=== PATIENT | female | born 1990 | race Caucasian/White ===

== ENCOUNTER 2017-10-10 19:06 | Observation (INO) ==
[2017-10-10 19:56] LABS: Bilirubin,Urine Negative (Negative); Blood,Urine Negative (Negative); Clarity,Urine Cloudy (Clear); Color,Urine Yellow (Yellow); Glucose,Urine (UA) Normal (Normal); Ketones,Urine Negative (Negative); Leukocyte Esterase,Urine Moderate (Negative); Nitrite,Urine Negative (Negative); PH,Urine 7.5 pH Units (5.0-8.0); Protein,Urine 30 mg/dL (Neg-Trace); Specific Gravity,Urine 1.025 (1.010-1.025); Urobilinogen,Urine Normal (Normal)
[2017-10-10 19:58] LABS: Bacteria,Urine Moderate per hpf (None-Few); Hyaline Casts,Urine None Seen per lpf (None-Few); Squamous Epithelial Cell,Urine Many per lpf (None-Few); WBC,Urine 30-50 per hpf (0-3)
--- NOTE | 2017-10-10 21:07 | Emergency Department Note ---
Disposition Clinical Impression: Suprapubic pain, acute, Inappropriate change in quantitative hCG in early Ovarian cyst Qualifiers: Laterality: left Qualified Code(s): N83.202 - Unspecified ovarian cyst, left side Disposition: Admitted As Inpatient Condition: Serious Time of Disposition: 23:43 HPI - General Chief complaint: ED Vaginal Bleeding Stated complaint: +home preg, vag bleed Time Seen by Provider: 10/10/17 21:06 Source: patient Nursing Notes Reviewed: Yes Vital Signs Reviewed: Yes - History of Present Illness HPI Narrative: 27-year-old female A1 approximately 4-6 weeks gestational age had a positive test a few weeks ago beta-HCG of 2:30 yesterday planes with abdominal cramping denies any abdominal bleeding patient's was to see in outpatient setting next week for repeat check, given worsening cramping and she previous had a miscarriage in April, she is concerned that she may be having a miscarriage and that she denies vaginal bleeding, denies vaginal discharge. Patient reports 4/10 cramping suprapubic abdominal pain. Pt Subjective Complaint: abdominal pain Onset (ago): hour(s) Location: pelvis Pain Severity: moderate Pain Scale: 4 Quality: cramping, aching Associated symptoms: Reports: abdominal pain. Denies: vaginal bleeding, vaginal discharge, dysuria, headache, rash, seizure Vaginal discharge: none Confirmation of LMP: No : yes OB History - Current : no care OB History - Previous Pregnancies: no care If care: followed by OB (Max) - Related Data Home Medications Medication Instructions Recorded Confirmed Vit Calc,Iron,Folic 1 tab PO DAILY 01/07/16 02/01/16 [ Vitamins] Previous Rx's Medication Instructions Recorded Docusate [Colace] 100 mg PO BID #60 capsule 02/03/16 Ibuprofen [Motrin] 600 mg PO TID PRN #60 tablet 02/03/16 Allergies Allergy/AdvReac Type Severity Reaction Status Date / Time No Known Allergies Allergy Verified 10/10/17 19:39 All systems ED: reviewed and negative except as stated. Review of Systems: As Per HPI Constitutional: Denies: fever Eyes: Denies: eye pain ENT ED: Denies: ear pain Cardiovascular: Denies: chest pain Respiratory: Denies: cough, dyspnea Gastrointestinal: Reports: as per HPI, abdominal pain. Denies: hematemesis Genitourinary: Denies: urgency, dysuria, frequency, discharge, abnormal menses Musculoskeletal: Denies: back pain Integumentary: Denies: rash, abrasion Neurological: Denies: headache Psychiatric: Denies: anxiety PMH - Social History Smoking Status: Never smoker Alcohol use: Reports: none Drug use: Reports: none Physical Exam - General General appearance: alert, in no apparent distress - Head Head exam: atraumatic - Eye Eye exam: Present: normal appearance, PERRL - ENT ENT exam: normal exam, normal oropharynx - Neck Neck exam: Present: normal inspection, full ROM - Chest Chest inspection: Present: normal inspection - Respiratory Respiratory exam: Present: normal lung sounds bilaterally - Cardiovascular Cardiovascular exam: Present: regular rate, normal rhythm - Abdominal Exam Abdominal exam: Present: soft, tenderness Abdominal tenderness: Present: suprapubic, mild - Female External Exam: Present: pt deferred Speculum Exam: Present: Pt Deferred - Extremities Exam Extremities exam: Present: normal inspection, full ROM - Neurological Exam Neurological exam: Present: alert, oriented X3, CN II-XII intact - Skin Skin exam: Present: warm, dry Course Course Narrative: Patient is a 27-year-old female who presents complaining of suprapubic pain and early given that she is having no vaginal bleeding pelvic exam was offered and deferred per the patient however the patient does have elevated beta hCG at 2:30 we repeat a beta hCG was 360 I did order transvaginal ultrasound to confirm IUP patient has a history of A- blood type but with no vaginal bleeding no indication for RhoGAM at this time concern for early cramping possible threatened versus ectopic - Consultations Consultation #1: I did reevaluate the patient her abdominal pain is somewhat improved with mostly suprapubic for a 10 the patient has no guarding or rigidity her blood pressures remained stable but I did order some IV fluids and basic lab work the patient has evidence on her ultrasound of some free abdominal fluid and questionable signs for possible ectopic given elevated hCG with no confirmed gestational sac only endometrial myometrial cysts ovarian cyst on the right given a questional ectopic findings he did call the nurse vice president tax Najma Evaluated the patient at bedside she was then evaluated by Dr. Dailey at bedside who will bring the patient for admission should no other recommendations at the time of her decision she evaluated the patient 2320 and the patient was hemodynamically stable on admission were was placed for possible ectopic admission to [facility] [employer] service Time: 23:20 Vital Signs Temperature 98.8 F 10/10/17 19:36 Pulse Rate 94 10/10/17 19:36 Respiratory Rate 16 10/10/17 19:36 Blood Pressure 165/100 10/10/17 19:36 O2 Sat by Pulse Oximetry 100 10/10/17 19:36 Temperature 98.8 F 10/10/17 19:36 Pulse Rate 94 10/10/17 19:36 Respiratory Rate 16 10/10/17 19:36 Blood Pressure 165/100 10/10/17 19:36 O2 Sat by Pulse Oximetry 100 10/10/17 19:36 Oxygen Delivery Oxygen Delivery Room Air OB/Uterine Contractions - Differential Diagnosis Likely: normal delivery at term, hemorrhage, -induced hypertension, eclampsia, ectopic - Medical Records Medical records reviewed: Yes I reviewed the patient's medical records. - Lab Data Lab results reviewed: Yes I reviewed the patient's lab results. Result diagrams: 10/10/17 20:05 10/10/17 20:05 Lab Results 10/10/17 10/10/17 10/10/17 Range/Units 19:44 20:05 20:05 WBC (4.3-11.1) K/mcL RBC (3.82-4.97) M/mcL Hgb (11.5-15.4) g/dL Hct (35.3-44.9) % MCV (83.0-100.0) fL MCH (28.0-33.3) pg MCHC (31.6-35.5) g/dL RDW (11.5-14.5) % Plt Count (140-400) K/mcL MPV (9.4-12.4) fL Immature Gran % (0-4) % Seg Neutrophils % % Lymphocytes % % Monocytes % % Eosinophils % % Basophils % % Neutrophils # (1.6-8.9) K/mcL Lymphocytes # (0.6-4.6) K/mcL Monocytes # (0.0-1.3) K/mcL Eosinophils # (0.0-0.6) K/mcL Basophils # (0.0-0.2) K/mcL Sodium 138 (136-145) mEq/L Potassium 3.5 (3.5-5.1) mEq/L Chloride 110 H (98-107) mEq/L Carbon Dioxide 15 L (23-29) mEq/L BUN 9 (6-20) mg/dL Creatinine 0.63 (0.60-1.20) mg/dL Est GFR ( Amer) > 60 (> 60) Est GFR (Non-Af Amer) > 60 (> 60) BUN/Creatinine Ratio 14 (6-26) Glucose 107 H (70-105) mg/dL Calculated Osmolality 285 (280-300) Calcium 10.2 (8.6-10.3) mg/dL Beta HCG, Quant 395 H (Less than 5) mIU/mL Urine Color Yellow (Yellow) Urine Clarity Cloudy A (Clear) Urine pH 7.5 (5.0-8.0) pH Units Ur Specific [place] 1.025 (1.010-1.025) Urine Protein 30 H (Neg-Trace) mg/dL Urine Glucose (UA) Normal (Normal) mg/dL Urine Ketones Negative (Negative) mg/dL Urine Blood Negative (Negative) Urine Nitrite Negative (Negative) Urine Bilirubin Negative (Negative) Urine Urobilinogen Normal (Normal) mg/dL Ur Leukocyte Esterase Moderate H (Negative) Urine Microscopic RBC 3-5 H (0-3) per hpf Urine Microscopic WBC 30-50 H (0-3) per hpf Ur Squamous Epith Cells Many H (None-Few) per lpf Urine Bacteria Moderate H (None-Few) per hpf Hyaline Casts None Seen (None-Few) per lpf Ur Culture Indicated? NO. (NO) Blood Type A NEGATIVE Antibody Screen NEGATIVE 10/10/17 Range/Units 20:05 WBC 12.8 H (4.3-11.1) K/mcL RBC 5.26 H (3.82-4.97) M/mcL Hgb 14.7 (11.5-15.4) g/dL Hct 44.8 (35.3-44.9) % MCV 85.2 (83.0-100.0) fL MCH 27.9 L (28.0-33.3) pg MCHC 32.8 (31.6-35.5) g/dL RDW 13.1 (11.5-14.5) % Plt Count 288 (140-400) K/mcL MPV 10.4 (9.4-12.4) fL Immature Gran % 0.5 (0-4) % Seg Neutrophils % 69.9 % Lymphocytes % 21.3 % Monocytes % 7.2 % Eosinophils % 0.7 % Basophils % 0.4 % Neutrophils # 9.0 H (1.6-8.9) K/mcL Lymphocytes # 2.7 (0.6-4.6) K/mcL Monocytes # 0.9 (0.0-1.3) K/mcL Eosinophils # 0.1 (0.0-0.6) K/mcL Basophils # 0.1 (0.0-0.2) K/mcL Sodium (136-145) mEq/L Potassium (3.5-5.1) mEq/L Chloride (98-107) mEq/L Carbon Dioxide (23-29) mEq/L BUN (6-20) mg/dL Creatinine (0.60-1.20) mg/dL Est GFR ( Amer) (> 60) Est GFR (Non-Af Amer) (> 60) BUN/Creatinine Ratio (6-26) Glucose (70-105) mg/dL Calculated Osmolality (280-300) Calcium (8.6-10.3) mg/dL Beta HCG, Quant (Less than 5) mIU/mL Urine Color (Yellow) Urine Clarity (Clear) Urine pH (5.0-8.0) pH Units Ur Specific [place] (1.010-1.025) Urine Protein (Neg-Trace) mg/dL Urine Glucose (UA) (Normal) mg/dL Urine Ketones (Negative) mg/dL Urine Blood (Negative) Urine Nitrite (Negative) Urine Bilirubin (Negative) Urine Urobilinogen (Normal) mg/dL Ur Leukocyte Esterase (Negative) Urine Microscopic RBC (0-3) per hpf Urine Microscopic WBC (0-3) per hpf Ur Squamous Epith Cells (None-Few) per lpf Urine Bacteria (None-Few) per hpf Hyaline Casts (None-Few) per lpf Ur Culture Indicated? (NO) Blood Type Antibody Screen - Radiology Data Radiology results reviewed: Yes I reviewed the patient's radiology results. Obstetrics Ultrasound 10/10/17 20:52 IMPRESSION: 1. No intrauterine gestational sac identified. A few nonspecific cystic changes are identified within the thickened endometrium. There is also moderate amount of nonspecific free fluid within the pelvis. Findings are highly suspicious for ectopic given rising beta HCG with no normal intrauterine gestational sac identified. 2. Small mildly complex left ovarian cyst measuring 2.1 x 1.7 x 1.6 cm. D/ / Byron Esparza MD / Byron Esparza MD Interpreting Provider: Byron Esparza MD Attestation Statement - Attestation Attestation: I, Regino Helm MD, personally evaluated this patient and discussed their management with the resident physician. I reviewed the resident's note and agree with the documented findings, medical decision making, and plan of care. 27-year-old female with early presents complaining of some crampy bilateral lower abdominal pain all day today which has gotten progressively worse. She denies any vaginal bleeding or discharge. No fever. No dizziness or syncope. No generalized abdominal pain. On examination patient is a well-developed obese female in no acute distress. She is alert and oriented 3. There is no cyanosis or diaphoresis. Breath sounds are clear and equal bilaterally. Heart regular rate and rhythm. Abdomen soft with normal bowel sounds. There is mild left lower quadrant and right lower quadrant tenderness on direct palpation. No CVA tenderness. Labs reviewed. Pelvic ultrasound showed: 1. No intrauterine gestational sac identified. A few nonspecific cystic changes are identified within the thickened endometrium. There is also moderate amount of nonspecific free fluid within the pelvis. Findings are highly suspicious for ectopic given rising beta HCG with no normal intrauterine gestational sac identified. 2. Small mildly complex left ovarian cyst measuring 2.1 x 1.7 x 1.6 cm. The miniature set constructor OB vice president tax was consulted and will evaluate patient in the emergency department. Patient was seen in the emergency department by the OB vice president tax and then was also seen by grinder operator surface tool, Dr. Dailey, and was accepted for admission to the OB service.
[2017-10-10] MEDS ORDERED: 0.9 % Sodium Chloride 1,000 ML IVC ONE (22:09)
[2017-10-10] MEDS ORDERED: *HR* FentaNYL (PF) 100 MCG/2 ML VIAL IVP ONE (22:22)
[2017-10-10 22:26] LABS: Basophils # 0.1 K/mcL (0.0-0.2); Basophils % 0.4 %; Eosinophils # 0.1 K/mcL (0.0-0.6); Eosinophils % 0.7 %; Hematocrit 44.8 % (35.3-44.9); Hemoglobin 14.7 g/dL (11.5-15.4); Immature Granulocytes % 0.5 % (0-4); Lymphocytes # 2.7 K/mcL (0.6-4.6); Lymphocytes % 21.3 %; Mean Corpuscular HGB Conc 32.8 g/dL (31.6-35.5); Mean Corpuscular Hemoglobin 27.9 pg (28.0-33.3); Mean Corpuscular Volume 85.2 fL (83.0-100.0); Mean Platelet Volume 10.4 fL (9.4-12.4); Monocytes # 0.9 K/mcL (0.0-1.3); Monocytes % 7.2 %; Platelet Count 288 K/mcL (140-400); Red Blood Count 5.26 M/mcL (3.82-4.97); Red Cell Distribution Width 13.1 % (11.5-14.5); Segmented Neutrophils % 69.9 %
[2017-10-10 22:53] LABS: BUN/Creatinine Ratio 14 (6-26); Blood Urea Nitrogen 9 mg/dL (6-20); Calcium 10.2 mg/dL (8.6-10.3); Carbon Dioxide 15 mEq/L (23-29); Chloride 110 mEq/L (98-107); Glucose 107 mg/dL (70-105); Osmolality,Calculated 285 (280-300); Potassium 3.5 mEq/L (3.5-5.1); Sodium 138 mEq/L (136-145); eGFR For Non-African Americans > 60 (> 60)
[2017-10-11] MEDS ORDERED: cefTRIAXone 2,000 MG in Water for inj. (sterile) 20 ML 20 ML IVP ONE (00:06)
[2017-10-11] MEDS ORDERED: *HR* FentaNYL (PF) 100 MCG/2 ML VIAL IVP PRN (00:06)
[2017-10-11] MEDS ORDERED: Ibuprofen 600 MG TABLET PO PRN (00:06)
--- NOTE | 2017-10-11 00:06 | OB/GYN History & Physical ---
Date of Encounter: 10/10/17 Time of Encounter: 23:59 Assessment and Plan (1) at early stage Current visit: Yes Status: Acute Early small possible gestational sac on ultrasound with thickened endometrium. Findings consistent with gestational age and quantitative hCG. Quantitative hCG has increased from 231 to 395 in 24 hours which would possibly be a normal increase. Patient has a history of loss of right fallopian tube with previous surgery, not ectopic. Since then she has had normal intrauterine pregnancies with her current in present left tube, 1 resulting in a normal delivery and the other a miscarriage. The patient would like to retain her tube and avoid surgery if at all possible. She is currently hemodynamically stable and does not have acute adnexal pain. It is possible her pain is from other sources. She is aware that there is a small amount of free fluid and weight is unknown if it is blood versus a ruptured cyst. Patient requests to be observed at this time with the realization that she may need emergent surgery in the future. I believe this is an informed decision (2) Ovarian cyst Current visit: Yes Status: Acute Cannot rule out early ectopic . Continue observation and repeat ultrasound Qualifiers: Laterality: left Qualified Code(s): N83.202 - Unspecified ovarian cyst, left side (3) Suprapubic pain, acute Current visit: Yes Status: Acute Urine culture, treat with Rocephin IV. This is where her main source of pain seems to start (4) Blood type A- Current visit: Yes Status: Acute type and screen was lab work in the morning. Consideration for RhoGAM if needed History of Present Illness Chief complaint: Early w/ Abdominal pain HPI: Ms. Cruz is a 27 year old female who states she ovulated around September 23 and think she has an early and just had a positive yesterday. She woke up at 4 AM on 10/10 with midline lower abdominal pain which gradually worsened and she presented to the emergency room. She had initially contacted the office with Dr. Chung and had an initial quantitative hCG ordered through the office which was 231. She reports no vaginal bleeding. She states she had pain that would worsen from right to left depending on which side she was laying on but did not persist on any 1 particular side. She had a history of a large ovarian cyst which was removed robotically with Dr. Head several years ago. The right fallopian tube was removed at that time with a cyst. This was confirmed by reviewing the operative report today. Since then the patient had a normal followed by an intrauterine spontaneous in April and May 2017. She reports regular 32 day cycles since then until she conceived. She reports no dyspareunia and no history of STDs. She would like to have more children and feels strongly about this. She is extremely tearful at the idea of losing her other fallopian tube. She knows that she is A- blood type. Past Med Surg Social Fam HX - Past Medical History Source: patient, old records reviewed Medical history: other (PCOS) Psychiatric history: anxiety, panic disorder, PTSD - Past Surgical History Surgical History: other (Right cystectomy and salpingectomy with robot) - Social History Smoking Status: Never smoker Smokeless Tobacco Status: No Alcohol use: none Drug use: none - Family History Mother Adopted: No Living Status: Still Living Hx Family Cardiac Disorders: Yes (hypertension) Hx Family Endocrine Disorder: Yes (type II diabetic) Obstetrical History - Pregnancies : 3 Term: 1 Ab's: 1 Livin Medications and Allergies Vit Calc,Iron,Folic [ Vitamins] 1 tab PO DAILY 01/07/16 [ History] Docusate [Colace] 100 mg PO BID #60 capsule 02/03/16 [Rx] Ibuprofen [Motrin] 600 mg PO TID PRN #60 tablet 02/03/16 [Rx] 3 Allergy/AdvReac Type Severity Reaction Status Date / Time No Known Allergies Allergy Verified 10/10/17 19:39 Review of System OB All systems PM: reviewed and no additional remarkable complaints except as stated - Constitutional Constitutional ROS IM: as per HPI, weight loss - Gastrointestinal Gastrointestinal: abdominal pain, cramping - Genitourinary Genitourinary: pelvic pain, no dysuria - Menstruation Menstruation: more than 4 weeks between periods (32 days), period normal Exam - Vital Signs Vital signs: Initial Vital Signs Temp Pulse Resp BP Pulse Ox 98.8 F 94 16 165/100 100 10/10/17 19:36 10/10/17 19:36 10/10/17 19:36 10/10/17 19:36 10/10/17 19:36 - Constitutional Constitutional: well developed, well nourished, mild distress, morbidly obese - HEENT HEENT: Normocephaly, Mucus Membranes Moist - Neck Neck exam: normal inspection, supple - Lungs Respiratory exam: CTAB - Cardiovascular Cardiovascular exam: RRR - Abdomen Abdomen: Present: bowel sounds normal, non tender. Absent: guarding noted - Extremities Extremities exam: normal inspection, warm - Vulva Vulva: bilateral: normal - Vagina Vagina: Present: normal moisture (Anterior vaginal wall tender) - Cervix Dilation: 0 Effacement: 0 - Uterus Uterus exam: Present: normal size, tender (Mild) - Adnexa Adnexa: bilateral: normal - Anus/Rectum Anus/Rectum: Present: normal perianal skin - Comments Comments: The uterus itself was slightly enlarged and slightly tender but more tenderness is appreciated anteriorly and suprapubically during bimanual exam. Adnexa are nontender without masses appreciated bilaterally Results Result Diagrams: 10/10/17 20:05 10/10/17 20:05 Abnormal lab results WBC 12.8 K/mcL (4.3-11.1) H 10/10/17 20:05 RBC 5.26 M/mcL (3.82-4.97) H 10/10/17 20:05 MCH 27.9 pg (28.0-33.3) L 10/10/17 20:05 Neutrophils # 9.0 K/mcL (1.6-8.9) H 10/10/17 20:05 Chloride 110 mEq/L (98-107) H 10/10/17 20:05 Carbon Dioxide 15 mEq/L (23-29) L 10/10/17 20:05 Glucose 107 mg/dL (70-105) H 10/10/17 20:05 Beta HCG, Quant 395 mIU/mL (Less than 5) H 10/10/17 20:05 Urine Clarity Cloudy (Clear) A 10/10/17 19:44 Urine Protein 30 mg/dL (Neg-Trace) H 10/10/17 19:44 Ur Leukocyte Esterase Moderate (Negative) H 10/10/17 19:44 Urine Microscopic RBC 3-5 per hpf (0-3) H 10/10/17 19:44 Urine Microscopic WBC 30-50 per hpf (0-3) H 10/10/17 19:44 Ur Squamous Epith Cells Many per lpf (None-Few) H 10/10/17 19:44 Urine Bacteria Moderate per hpf (None-Few) H 10/10/17 19:44 All other labs normal. - VTE Documentation of Mechanical Device: Intermittent pneumatic compression device
[2017-10-11] MEDS: Ringers Solution, Lactated 1,000 ML IVC SCH ×2 (00:48→10:50)
[2017-10-11] MEDS ORDERED: Acetaminophen IV 1,000 MG/100 ML INFUS..BTL IVPB SCH (06:00)
[2017-10-11 06:25] LABS: Basophils % 0.3 %; Eosinophils # 0.1 K/mcL (0.0-0.6); Eosinophils % 0.9 %; Hematocrit 38.8 % (35.3-44.9); Hemoglobin 12.4 g/dL (11.5-15.4); Immature Granulocytes % 0.5 % (0-4); Lymphocytes # 2.9 K/mcL (0.6-4.6); Lymphocytes % 29.8 %; Mean Corpuscular Hemoglobin 27.6 pg (28.0-33.3); Mean Corpuscular Volume 86.2 fL (83.0-100.0); Mean Platelet Volume 10.4 fL (9.4-12.4); Monocytes # 0.7 K/mcL (0.0-1.3); Monocytes % 7.3 %; Neutrophils # 5.9 K/mcL (1.6-8.9); Platelet Count 231 K/mcL (140-400); Red Cell Distribution Width 13.2 % (11.5-14.5); Segmented Neutrophils % 61.2 %
--- NOTE | 2017-10-11 10:54 | OB/GYN Progress Note ---
Date of Encounter: 10/11/17 Time of Encounter: 10:46 - Assessment and Plan (1) Inappropriate change in quantitative hCG in early Current Visit: Yes Status: Acute S: saw and examined patient with the . She does not report vaginal bleeding or abd/pelvic pain, 2nd U/S done today which I reviewed with her and her . Beta hCg drawn and now falling from 395-370 (10/10-10/11). VSS ABD: non tender, non distended, soft, no guarding or rigidity Plan: I discussed with the patient that her beta hCG is falling so she is most likely having a failed . Her U/S is unchanged, her clinical status is stable and unchanged. I have asked nursing to stop all pain meds to avoid masking a worsening clinical status(the patient is aware of this). I will draw one more beta hCG tomorrow AM and then if her clinical status remains stable, I will discharge for weekly beta hCG and U/S in the office. Ok for her to take clears, risk of taking to surgery is extremely low. will return around 6PM for another serial abd exam awaiting culture results, already received rocephin. Objective - Vital Signs Latest vital signs: Vital Signs Temp Pulse Resp BP Pulse Ox 10/11/17 07:48 98.4 F 61 16 124/80 97 10/11/17 06:00 98.3 F 86 15 108/75 99 10/11/17 00:30 98.4 F 95 18 128/75 97 Intake and Output 10/10/17 10/11/17 10/11/17 23:59 07:59 15:59 Intake Total 995 / 995 0 / 0 Output Total 200 / 200 Balance 995 / 995 -200 / -200 Intake: IV Fluids 995 / 995 0 / 0 Lactated Ringers 1,000 ML @ 125 875 / 875 0 / 0 mls/hr IVC .Q8H [facility] Rx#: [id number] Rocephin 2,000 MG In Water for 20 / 20 inj. (sterile) 20 ML @ 600 mls/ hr IVP ONCE ONE Rx#:[id number] Ofirmev 1,000 mg/100 ml 1,000 100 / 100 mg In 100 ml @ 400 mls/hr IVPB Q6HR [facility] Rx#:[id number] Output: Urine 200 / 200 - I&O's I&O's: Intake & Output 10/08/17 10/09/17 10/10/17 10/11/17 23:59 23:59 23:59 23:59 Intake Total 995 / 995 Output Total 200 / 200 Balance 795 / 795 - Labs Labs: Abnormal lab results MCH 27.6 pg (28.0-33.3) L 10/11/17 05:47 Chloride 110 mEq/L (98-107) H 10/10/17 20:05 Carbon Dioxide 15 mEq/L (23-29) L 10/10/17 20:05 Glucose 107 mg/dL (70-105) H 10/10/17 20:05 Beta HCG, Quant 370 mIU/mL (Less than 5) H 10/11/17 07:43 Urine Clarity Cloudy (Clear) A 10/10/17 19:44 Urine Protein 30 mg/dL (Neg-Trace) H 10/10/17 19:44 Ur Leukocyte Esterase Moderate (Negative) H 10/10/17 19:44 Urine Microscopic RBC 3-5 per hpf (0-3) H 10/10/17 19:44 Urine Microscopic WBC 30-50 per hpf (0-3) H 10/10/17 19:44 Ur Squamous Epith Cells Many per lpf (None-Few) H 10/10/17 19:44 Urine Bacteria Moderate per hpf (None-Few) H 10/10/17 19:44 Consult Discharge Plan - Plan Referrals: Cielo Reed, MANAGER MEDICAL DEVICE [Primary Care Provider] -
--- NOTE | 2017-10-11 18:39 | OB/GYN Progress Note ---
Date of Encounter: 10/11/17 Time of Encounter: 18:37 - Assessment and Plan (1) Inappropriate change in quantitative hCG in early Current Visit: Yes Status: Acute S: saw and examined patient. She is doing well. She has no vaginal bleeding or abd/pelvic pain. She has not required pain meds. VSS ABD: non tender, non distended, soft, no guarding or rigidity Plan: will draw beta hCG tomorrow, will most likely be discharged tomorrow Objective - Vital Signs Vital Signs: Vital Signs Temp Pulse Resp BP Pulse Ox 10/11/17 16:13 98.3 F 83 16 119/76 10/11/17 07:48 98.4 F 61 16 124/80 97 10/11/17 06:00 98.3 F 86 15 108/75 99 10/11/17 00:30 98.4 F 95 18 128/75 97 Intake and Output 10/11/17 10/11/17 10/11/17 07:59 15:59 23:59 Intake Total 995 / 995 125 / 125 Output Total 200 / 200 700 / 700 Balance 995 / 995 -75 / -75 -700 / -700 Intake: IV Fluids 995 / 995 125 / 125 Lactated Ringers 1,000 ML @ 125 875 / 875 125 / 125 mls/hr IVC .Q8H [facility] Rx#: [id number] Rocephin 2,000 MG In Water for 20 / 20 inj. (sterile) 20 ML @ 600 mls/ hr IVP ONCE ONE Rx#:[id number] Ofirmev 1,000 mg/100 ml 1,000 100 / 100 mg In 100 ml @ 400 mls/hr IVPB Q6HR [facility] Rx#:[id number] Output: Urine 200 / 200 700 / 700 - Labs Labs: Abnormal lab results MCH 27.6 pg (28.0-33.3) L 10/11/17 05:47 Chloride 110 mEq/L (98-107) H 10/10/17 20:05 Carbon Dioxide 15 mEq/L (23-29) L 10/10/17 20:05 Glucose 107 mg/dL (70-105) H 10/10/17 20:05 Beta HCG, Quant 370 mIU/mL (Less than 5) H 10/11/17 07:43 Urine Clarity Cloudy (Clear) A 10/10/17 19:44 Urine Protein 30 mg/dL (Neg-Trace) H 10/10/17 19:44 Ur Leukocyte Esterase Moderate (Negative) H 10/10/17 19:44 Urine Microscopic RBC 3-5 per hpf (0-3) H 10/10/17 19:44 Urine Microscopic WBC 30-50 per hpf (0-3) H 10/10/17 19:44 Ur Squamous Epith Cells Many per lpf (None-Few) H 10/10/17 19:44 Urine Bacteria Moderate per hpf (None-Few) H 10/10/17 19:44
[2017-10-11] MEDS: Acetaminophen 325 MG TABLET PO PRN (20:52)
--- NOTE | 2017-10-12 07:37 | OB/GYN Progress Note ---
Date of Encounter: 10/12/17 Time of Encounter: 07:30 - Assessment and Plan (1) Inappropriate change in quantitative hCG in early Current Visit: Yes Status: Acute S: saw and examined patient. She continues to do well. She has no vaginal bleeding or abd/pelvic pain. VSS ABD: non tender, non distended, soft, no guarding or rigidity Plan: I discussed with the patient that her beta HCG koki to [phone] from 370. At this point, I am unsure if this is a viable . I still don't think that this is an ectopic but I'm not entirely 100% sure. As a result, I counseled the patient that we cannot issue MTX at this time until we are very certain so I will have her draw beta HCG on 10/15 and she will see me in the office on 10/16. She was already scheduled to see me on 10/19 for U/S and we will keep that visit as is. I have counseled her on return to the ED precaution i.e. bleeding, severe pain etc. Follow up outpatient. Objective - Vital Signs Vital Signs: Vital Signs Temp Pulse Resp BP Pulse Ox 10/11/17 20:24 98.6 F 84 16 135/84 100 10/11/17 16:13 98.3 F 83 16 119/76 10/11/17 07:48 98.4 F 61 16 124/80 97 Intake and Output 10/11/17 10/11/17 10/12/17 15:59 23:59 07:59 Intake Total 125 / 125 Output Total 200 / 200 1400 / 1400 Balance -75 / -75 -1400 / -1400 Intake: IV Fluids 125 / 125 Lactated Ringers 1,000 ML @ 125 125 / 125 mls/hr IVC .Q8H [facility] Rx#: [id number] Output: Urine 200 / 200 1400 / 1400 - Labs Labs: Abnormal lab results MCH 27.6 pg (28.0-33.3) L 10/11/17 05:47 Chloride 110 mEq/L (98-107) H 10/10/17 20:05 Carbon Dioxide 15 mEq/L (23-29) L 10/10/17 20:05 Glucose 107 mg/dL (70-105) H 10/10/17 20:05 Beta HCG, Quant 645 mIU/mL (Less than 5) H 10/12/17 05:51 Urine Clarity Cloudy (Clear) A 10/10/17 19:44 Urine Protein 30 mg/dL (Neg-Trace) H 10/10/17 19:44 Ur Leukocyte Esterase Moderate (Negative) H 10/10/17 19:44 Urine Microscopic RBC 3-5 per hpf (0-3) H 10/10/17 19:44 Urine Microscopic WBC 30-50 per hpf (0-3) H 10/10/17 19:44 Ur Squamous Epith Cells Many per lpf (None-Few) H 10/10/17 19:44 Urine Bacteria Moderate per hpf (None-Few) H 10/10/17 19:44
[2017-10-12] MEDS: Acetaminophen 325 MG TABLET PO PRN (08:00)
[2017-10-12 08:17] VITALS: BP 129/89
== END 2017-10-12 08:34 | disposition home or self-care (01) ==
LOC: 1NENUOBS 19:06 → EMEROO 19:06 → 1NENUOBS 10-11 00:20
PROVIDERS: ADMIT Obstetrics & Gynecology; ATTEND Obstetrics & Gynecology

== ENCOUNTER 2019-02-14 07:59 | Inpatient (IN) ==
[2019-02-14] MEDS ORDERED: Metoclopramide 10 MG/2 ML VIAL IVP PRN ×2 (08:26→21:44)
[2019-02-14] MEDS ORDERED: miSOPROStol 25 MCG TABLET PO PRN (08:26)
[2019-02-14] MEDS ORDERED: Famotidine 20 MG/2 ML VIAL IVP PRN (08:26)
[2019-02-14] MEDS ORDERED: Ondansetron 4 MG/2 ML VIAL IVP PRN ×2 (08:26→21:44)
[2019-02-14] MEDS ORDERED: *HR* Nalbuphine 10 MG/ML AMPUL IVP PRN (08:26)
[2019-02-14] MEDS ORDERED: Ringers Solution, Lactated 1,000 ML IVC SCH ×2 (08:30→21:44)
[2019-02-14 09:00] LABS: Basophils % 0.3 %; Eosinophils # 0.1 K/mcL (0.0-0.6); Eosinophils % 0.5 %; Hematocrit 40.3 % (35.3-44.9); Hemoglobin 13.4 g/dL (11.5-15.4); Immature Granulocytes % 0.7 % (0-4); Lymphocytes # 1.5 K/mcL (0.6-4.6); Lymphocytes % 12.1 %; Mean Corpuscular HGB Conc 33.3 g/dL (31.6-35.5); Mean Corpuscular Hemoglobin 29.6 pg (28.0-33.3); Mean Platelet Volume 11.3 fL (9.4-12.4); Monocytes # 0.5 K/mcL (0.0-1.3); Monocytes % 4.2 %; Neutrophils # 10.5 K/mcL (1.6-8.9); Platelet Count 236 K/mcL (140-400); Red Blood Count 4.53 M/mcL (3.82-4.97); Red Cell Distribution Width 14.7 % (11.5-14.5); Segmented Neutrophils % 82.2 %; White Blood Count 12.7 K/mcL (4.3-11.1)
--- NOTE | 2019-02-14 09:09 | Anesthesia Evaluation PreOp ---
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 ("on metformin for infertility issues" was told to continue taking it.) Other Medical History: Other (occ back pain with "sciatica" according to pt, reported no radiculopathy) Anesthesia History: No Prior Anesthetic Complications, Past Anesthesia (previous GA, and epidural without comp.) Alcohol Use: none Drug use: none Medications and Allergies Pnv No.122/Iron/Folic Acid [ Multi Tablet] 1 each PO DAILY 02/19/18 [History] metFORMIN [Glucophage] 500 mg PO 0800 02/19/18 [History] Aspirin 81 mg PO DAILY 02/14/19 [History] Allergy/AdvReac Type Severity Reaction Status Date / Time No Known Allergies Allergy Verified 12/03/17 12:22 Anesthesia Results - Labs 02/14/19 08:40 Anesthesia Exam - HEENT Pupil (Motor): Pupils equal Mallampati: III Teeth: Normal Oral Opening: Greater than 3 - BOOSTER PUMP OPERATOR LOC: Oriented BOOSTER PUMP OPERATOR Motor: Normal RUE, Normal LUE, Normal RLE, Normal LLE, Normal Face BOOSTER PUMP OPERATOR Sensory: Normal: RUE, LUE, RLE, LLE, Face - Cardiac Rhythm: Regular Murmur: None - Pulmonary Breath Sounds: bilateral Clear Respiratory Effort: Symmetrical Anesthesia Assess/Plan ASA Score: 3 (super MO, BMI=50) Level of consciousness: Cooperative, Oriented Anesthetic Plan: General, Spinal, Epidural Monitoring Plan: Standard Monitors Recovery Plan: PACU
[2019-02-14] MEDS ORDERED: Epidural Premix (fent/bupiv) 110 ML EP SCH (09:15)
[2019-02-14 09:29] LABS: Amphetamine Screen,Urine Negative ng/mL (Cutoff=1000); Barbiturate Screen,Urine Negative ng/mL (Cutoff=200); Benzodiazepines Screen,Urine Negative ng/mL (Cutoff=200); Cannabinoid Screen,Urine Negative ng/mL (Cutoff = 50); Cocaine Screen,Urine Negative ng/mL (Cutoff= 300); Opiate Screen,Urine Negative ng/mL (Cutoff=300); Phencyclidine Screen,Urine Negative ng/mL (Cutoff=25)
[2019-02-14] MEDS ORDERED: *HR* Oxytocin 10 UNIT/ML VIAL IM ONE (15:20)
[2019-02-14] MEDS ORDERED: Ondansetron 4 MG/2 ML VIAL ONE (15:20)
[2019-02-14] MEDS ORDERED: *HR* Phenylephrine 10 MG/ML VIAL ONE (15:20)
[2019-02-14] MEDS ORDERED: *HR* Morphine Sulfate/PF 10 MG/10 ML AMPUL ONE (15:21)
[2019-02-14] MEDS ORDERED: *HR* FentaNYL (PF) 100 MCG/2 ML VIAL ONE (15:21)
[2019-02-14] MEDS ORDERED: EPHEDrine 50 MG/ML VIAL ONE (15:22)
[2019-02-14] MEDS ORDERED: ceFAZolin 3,000 MG in Water for inj. (sterile) 30 ML IVP ONE (15:46)
[2019-02-14] MEDS ORDERED: *HR* Midazolam HCl 2 MG/2 ML VIAL ONE (16:11)
--- NOTE | 2019-02-14 16:51 | OB/GYN History & Physical ---
Date of Encounter: 02/14/19 Time of Encounter: 08:30 Assessment and Plan (1) 39 weeks gestation of Current visit: No Status: Acute 37 yo female presents at 39+ weeks EGA for induction of labor. On arrival she has irregular uc's, no vb or lof. Will start Cytotec, consider day. History of Present Illness Chief complaint: Here for induction HPI: Ms. Cruz is a 28 year old female female at 39 weeks EGA presents for induction of labor. On arrival she reports irregular uc's, no vb or lof. Past Med Surg Social Fam HX - Past Medical History Source: patient, old records reviewed Medical history: no medical history, other Additional medical history: PCOS Psychiatric history: anxiety, panic disorder, PTSD - Past Surgical History Surgical History: other Additional surgical history: robotic lap r ovarian cystectomy, D&C 11/2016 - Social History Smoking Status: Former smoker Smokeless Tobacco Status: No Alcohol use: none Drug use: none - Family History Mother Adopted: No Living Status: Still Living Hx Family Cardiac Disorders: Yes (hypertension) Hx Family Endocrine Disorder: Yes (type II diabetic) Obstetrical History - Pregnancies : 4 Para: 1 Medications and Allergies Pnv No.122/Iron/Folic Acid [ Multi Tablet] 1 each PO DAILY 02/19/18 [History] metFORMIN [Glucophage] 500 mg PO 0800 02/19/18 [History] Aspirin 81 mg PO DAILY 02/14/19 [History] Allergy/AdvReac Type Severity Reaction Status Date / Time No Known Allergies Allergy Verified 12/03/17 12:22 Exam - Constitutional Constitutional: well developed - HEENT HEENT: EOMI - Neck Neck exam: full ROM - Lungs Respiratory exam: CTAB - Cardiovascular Cardiovascular exam: RRR - Abdomen Abdomen: Present: gravid - Extremities Extremities exam: full ROM Deep Tendon Reflex Grade: 2+ Normal - Cervix Dilation: 1 Effacement: 70 Station: -2 Results Result Diagrams: 02/14/19 08:40 Abnormal lab results WBC 12.7 K/mcL (4.3-11.1) H 02/14/19 08:40 RDW 14.7 % (11.5-14.5) H 02/14/19 08:40 10.5 K/mcL (1.6-8.9) H 02/14/19 08:40 All other labs normal. - VTE Reasons for not Prescribing Prophylaxis: Treatment not Indicated - Low risk for VTE
--- NOTE | 2019-02-14 16:59 | OB Labor Progress Note ---
Date of Encounter: 02/14/19 Time of Encounter: 13:30 Labor Progress Note - Subjective Subjective: Pt having mild cramps. Pt was checked and no longer notable preenting part. U/S shows breech . - Cervix Cervix: 1 - Heart Tones Heart Tones: RNST - Plan Plan: Pt undergoing induction, latest exam doesn't reveal vertex therefore u/s was performed and confirms breech infant. D/w pt options including possible attempted version. After d/w pt options will proceed with primary . Pt aware of operative risks and consent obtained.
[2019-02-14] MEDS ORDERED: CeFAZolin Syr 3,000MG/30 ML 3,000 MG/30 ML SYRINGE IVPB ONE (17:00)
[2019-02-14] MEDS ORDERED: Lidocaine -MPF 2% 5 ML VIAL ONE (17:04)
[2019-02-14] MEDS ORDERED: Bupivacaine/PF 0.75% in Dex 2 ML AMPUL INFILT ONE (17:04)
--- NOTE | 2019-02-14 19:39 | Anesthesia Evaluation Post Op ---
Date of Encounter: 02/14/19 Time of Encounter: 19:39 - Vital Signs Vital Signs: vss - Lungs Lungs: Clear Ascult./Percussion - Airway Airway: Non-obstructed - Mental Status Mental Status: Alert & Oriented, Answers Appropriately - Pain Pain Scale: 0 Pain Scale used: Numeric (1 - 10), Emily (Faces) - Nausea Vomiting Nausea Vomiting: Not Present - Hydration Hydration: Flores catheter - Discharge PostOp Status: Transfer Patient to floor
--- NOTE | 2019-02-14 20:45 | OB/GYN Procedure Note ---
Section - Date of procedure: 02/14/19 Preop diagnosis: breech Post-op diagnosis: same Procedure: section, primary low transverse Surgeon: Willam Chiu Blood Loss: 600 Was there an professional nursing assistant present: No Anesthesiologist: Edelmira Prince Objects Conservator: Elroy Barrientos Anesthesia Type: Spinal Disposition: L&D Recovery Room Specimens: Placenta - (s) Infant A Infant Delivery Date: 02/14/19 Delivery Time: 18:24 Presentation: breech Gender: Male Gram Weight: 3.68 kg at 1 minute: 9 at 5 minutes: 9 Shoulder Dystocia: not encountered Specimens collected: cord blood Placenta: spontaneous Cord: 3 umbilical vessels - Narrative Narrative: Description of procedure: Patient was taken operating room where spinal anesthesia was administered. She is prepped draped in usual sterile fashion and bladder was drained of clear urine. We tested and determined adequate anesthesia. Scalel was used to make a Pfannenstiel skin incision which was sharply take down the rectus fascia. Fascia incised midline fascial incision was extended bilaterally. Plane was developed between rectus muscle rectus fascia and came was entered sharply. Bladder blade was placed and bladder flap was developed and lower uterine segment. Scalpel was used to make a low transverse uterine incision this was extended bluntly bilaterally membranes ruptured clear fluid. was delivered from vertex presentation. Cord was clamped and cut and oropharynx nasopharynx were suctioned of clear fluid. was handed nurse personnel who were in attendance. Placenta was delivered manually and uterine cavity was massaged free of all residual tissue. Uterus was closed 0 Vicryl running lock stitch. Second imbricating layer was placed with the first obtain hemostasis. The lower uterine segment below the incision left side was quite thin with some reinforcing stitches in here. Irrigation was performed hemostasis was ensured. Again hemostasis was ensured. Fascia was closed with 0 Vicryl in running manner. Again irrigation was performed hemostasis was assured. The subcutaneous tissue was reapproximated with several interrupted sutures with 2-0 chromic suture. Skin edges reapproximated with 4-0 Vicryl. Steri-Strips are applied all sponge and instruments counts are correct patient was taken recovery in good condition. Mihir dressing was applied.
[2019-02-14] MEDS ORDERED: Rho Immune Globulin 1,500 UNIT SYRINGE IM ONE (21:44)
[2019-02-14] MEDS ORDERED: Oxytocin 20 units/ LR 1000 mL 20 UNIT/1,000 ML BAG IVC SCH (21:44)
[2019-02-14] MEDS ORDERED: Simethicone 80 MG TAB.CHEW PO PRN (21:44)
[2019-02-14] MEDS ORDERED: Sennosides 8.6 MG TABLET PO PRN (21:44)
[2019-02-14] MEDS: *HR* OxyCODONE/APAP 5/325 TABLET PO PRN (22:41)
[2019-02-15] MEDS: Ibuprofen 600 MG TABLET PO PRN ×4 (02:14→20:13)
[2019-02-15] MEDS: *HR* OxyCODONE/APAP 5/325 TABLET PO PRN ×3 (05:39→20:11)
[2019-02-15 05:54] LABS: Basophils % 0.3 %; Eosinophils % 0.2 %; Hematocrit 32.2 % (35.3-44.9); Immature Granulocytes % 0.6 % (0-4); Lymphocytes # 1.7 K/mcL (0.6-4.6); Lymphocytes % 14.1 %; Mean Corpuscular HGB Conc 32.9 g/dL (31.6-35.5); Mean Corpuscular Hemoglobin 30.3 pg (28.0-33.3); Monocytes # 0.8 K/mcL (0.0-1.3); Monocytes % 6.4 %; Neutrophils # 9.6 K/mcL (1.6-8.9); Platelet Count 180 K/mcL (140-400); Red Cell Distribution Width 14.9 % (11.5-14.5); Segmented Neutrophils % 78.4 %; White Blood Count 12.3 K/mcL (4.3-11.1)
[2019-02-15 06:02] LABS: Hemoglobin 10.6 g/dL (11.5-15.4)
[2019-02-15] MEDS: Aspirin Enteric Coated 81 MG Tablet PO SCH (08:37)
[2019-02-15] MEDS: Prenatal Vit/FA 1 EACH TABLET PO SCH (08:39)
--- NOTE | 2019-02-15 09:12 | OB/GYN Progress Note ---
Date of Encounter: 02/15/19 Time of Encounter: 09:10 - Assessment and Plan (1) Status post primary low transverse section Current Visit: Yes Status: Acute Continue to observe UO Continue routine pp care Anticipate d/c to home tomorrow (2) Acute blood loss as cause of postoperative anemia Current Visit: Yes Status: Acute Continue iron supplementation Subjective - Subjective Principal diagnosis: s/p PLTCS Interval history: Feeling well. Out of bed without dizziness. Some abdominal discomfort-using binder. Cramping minimal, using ibuprofen and Percocet. Bottlefeeding every 2- 3 hours. Some nipple soreness. Voiding with catheter. Passing flatus, no BM yet. Tolerating clear liquid diet. Patient reports: appetite normal, pain well controlled, ambulating normally, no voiding normally [place]: doing well, bottle feeding Objective - Vital Signs Latest vital signs: Vital Signs Temp Pulse Pulse Resp BP Pulse Ox 02/15/19 08:35 98.7 F 83 20 126/72 100 02/15/19 06:25 98.0 F 80 16 121/76 98 02/15/19 01:35 98.2 F 75 14 117/22 99 02/15/19 00:20 98.0 F 79 16 129/87 99 02/14/19 22:44 98.0 F 88 16 124/73 100 02/14/19 22:10 98.2 F 80 80 15 118/71 100 02/14/19 21:35 98.2 F 71 16 104/62 100 Intake and Output 02/14/19 02/15/19 02/15/19 23:59 07:59 15:59 Intake Total 0 / 0 450 / 450 Output Total 150 / 150 235 / 235 Balance -150 / -150 215 / 215 Intake: Oral 0 / 0 450 / 450 Output: Catheter 150 / 150 235 / 235 Other: Stool Characteristics Normal for Patient - Exam Lungs: bilateral: normal Chest: Normal S1, Normal S2 Extremities: Present: normal Abdomen: Present: normal appearance, soft Incision: Present: normal, dry, intact, dressed Uterus: Present: normal, firm Fundal Height: 2 (below and midline) - Labs Labs: Laboratory Results - last 24 hr 02/14/19 02/15/19 08:40 05:18 WBC 12.3 H RBC 3.50 L Hgb 10.6 L D Hct 32.2 L MCV 92.0 MCH 30.3 MCHC 32.9 RDW 14.9 H Plt Count 180 MPV 11.0 Immature Gran % 0.6 Seg Neutrophils % 78.4 Lymphocytes % 14.1 Monocytes % 6.4 Eosinophils % 0.2 Basophils % 0.3 Neutrophils # 9.6 H Lymphocytes # 1.7 Monocytes # 0.8 Eosinophils # 0.0 Basophils # 0.0 Urine Opiates Screen Negative Ur Buprenorphine Scrn Negative Ur Barbiturates Screen Negative Ur Phencyclidine Scrn Negative Ur Amphetamines Screen Negative U Benzodiazepines Scrn Negative Urine Cocaine Screen Negative U Marijuana (THC) Screen Negative
[2019-02-16] MEDS: *HR* OxyCODONE/APAP 5/325 TABLET PO PRN (04:04)
[2019-02-16] MEDS: Ibuprofen 600 MG TABLET PO PRN (04:05)
[2019-02-16] MEDS: Aspirin Enteric Coated 81 MG Tablet PO SCH (08:36)
[2019-02-16] MEDS: Prenatal Vit/FA 1 EACH TABLET PO SCH (08:36)
[2019-02-16 08:44] VITALS: BP 128/78
[2019-02-16] MEDS ORDERED: Rho Immune Globulin 1,500 UNIT SYRINGE IM ONE (08:53)
--- NOTE | 2019-02-16 09:38 | Discharge Summary ---
Date of Encounter: 02/16/19 Time of Encounter: 09:38 - Discharge Diagnosis (1) 39 weeks gestation of Priority: Primary Status: Acute (2) Status post primary low transverse section Priority: Primary Status: Acute Comments: Doing well s/p primary low transverse . Will D/c home with rx for Percocet and Motrin. - Discharge Medications Prescriptions: New Ibuprofen [Motrin] 600 mg PO Q6HR PRN #40 tablet PRN Reason: Cramping OxyCODONE/APAP 5/325 [Percocet 5/325 MG] 1 each PO Q4HR PRN 7 Days #28 tablet PRN Reason: post op pain No Action metFORMIN [Glucophage] 500 mg PO 0800 Pnv No.122/Iron/Folic Acid [ Multi Tablet] 1 each PO DAILY Aspirin 81 mg PO DAILY Home Medications: Pnv No.122/Iron/Folic Acid [ Multi Tablet] 1 each PO DAILY 02/19/18 [History] metFORMIN [Glucophage] 500 mg PO 0800 02/19/18 [History] Aspirin 81 mg PO DAILY 02/14/19 [History] Ibuprofen [Motrin] 600 mg PO Q6HR PRN #40 tablet 02/16/19 [Rx] OxyCODONE/APAP 5/325 [Percocet 5/325 MG] 1 each PO Q4HR PRN 7 Days #28 tablet [Rx] Allergies/Adverse Reactions: Allergy/AdvReac Type Severity Reaction Status Date / Time No Known Allergies Allergy Verified 12/03/17 12:22 Data Procedures and tests throughout hospitalization: Laboratory Tests 02/14/19 02/14/19 02/14/19 08:40 08:40 19:55 WBC 12.7 H RBC 4.53 Hgb 13.4 Hct 40.3 MCV 89.0 MCH 29.6 MCHC 33.3 RDW 14.7 H Plt Count 236 MPV 11.3 Immature Gran % 0.7 Seg Neutrophils % 82.2 Lymphocytes % 12.1 Monocytes % 4.2 Eosinophils % 0.5 Basophils % 0.3 Neutrophils # 10.5 H Lymphocytes # 1.5 Monocytes # 0.5 Eosinophils # 0.1 Basophils # 0.0 Urine Opiates Screen Negative Ur Buprenorphine Scrn Negative Ur Barbiturates Screen Negative Ur Phencyclidine Scrn Negative Ur Amphetamines Screen Negative U Benzodiazepines Scrn Negative Urine Cocaine Screen Negative U Marijuana (THC) Screen Negative Ur Drug Screen Interp See Below Screen NEGATIVE Baby's Blood Type AB RH POSITIVE Mother's Blood Type A RH NEGATIVE Rhogam Indicated YES Rhogam Req for Mother 1 02/15/19 05:18 WBC 12.3 H RBC 3.50 L Hgb 10.6 L D Hct 32.2 L MCV 92.0 MCH 30.3 MCHC 32.9 RDW 14.9 H Plt Count 180 MPV 11.0 Immature Gran % 0.6 Seg Neutrophils % 78.4 Lymphocytes % 14.1 Monocytes % 6.4 Eosinophils % 0.2 Basophils % 0.3 Neutrophils # 9.6 H Lymphocytes # 1.7 Monocytes # 0.8 Eosinophils # 0.0 Basophils # 0.0 Urine Opiates Screen Ur Buprenorphine Scrn Ur Barbiturates Screen Ur Phencyclidine Scrn Ur Amphetamines Screen U Benzodiazepines Scrn Urine Cocaine Screen U Marijuana (THC) Screen Ur Drug Screen Interp Screen Baby's Blood Type Mother's Blood Type Rhogam Indicated Rhogam Req for Mother - Impressions Doing well, will d/c home. regular diet without n/v. Ambulating. 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 Time Attestation: Total time spent providing and/or coordinating discharge services: Exam - Constitutional Vitals: Temp Pulse Resp BP Pulse Ox 98.5 F 108 14 128/78 96 02/16/19 08:43 02/16/19 08:43 02/16/19 08:43 02/16/19 08:43 02/16/19 08:43 General appearance IM: A&O X 3 - Respiratory Respiratory exam: Present: CTAB - Cardiovascular Cardiovascular exam IM: Present: RRR - GI/Abdominal GI/Abdominal exam IM: normal bowel sounds - Extremities Exam Extremities exam IM: Present: full ROM - Neurological Exam Neurological exam: oriented X3 - VTE Reasons for not Prescribing Prophylaxis: Treatment not Indicated - Low risk for VTE Documentation of Mechanical Device: Intermittent pneumatic compression device
== END 2019-02-16 11:10 | disposition home or self-care (01) | DRG 787 ==
LOC: 1NENULAB 07:59 → 1NENUOBS 21:43
PROVIDERS: ADMIT Obstetrics & Gynecology; ATTEND Obstetrics & Gynecology